=== PATIENT | female | born 1975 | race Caucasian/White ===

== ENCOUNTER 2016-06-28 18:58 | Emergency (ER) | payer MEDICARE ==
[~2016-06-28] VITALS: Ht 154.9 cm; Wt 173.7 kg
[~2016-06-28 18:58] MED LIST: ATEN-41 PO; HYDR25TA4 PO; LOSA100T11 PO
[2016-06-28 19:12] VITALS: BP 153/104; PULSE 81; RESP 16; O2SAT 98
--- NOTE | 2016-06-28 19:16 | NUR ---
Placed in room 4 . Placed on vehicle monitor technician, blood pressure machine and pulse oximeter. To gown for exam. Side rails up.
--- NOTE | 2016-06-28 19:25 | NUR ---
Pt presents to ED with c/o pulling sternal pressure 5/10, non-radiating, and difficulty breathing 2 hours ago. Pt also c/o swelling in the knee and hand. Skin intact. A&Ox4, denies N/V/D. Non-diaphoretic. Will contineu to monitor
--- NOTE | 2016-06-28 19:40 | NUR ---
at bedside examining pt
[2016-06-28 20:21] LABS: BILIRUBIN,URINE NEGATIVE (NEGATIVE); BLOOD, URINE NEGATIVE (NEGATIVE); CLARITY/URINE CLEAR (CLEAR); COLOR,URINE YELLOW (YELLOW); GLUCOSE,URINE NEGATIVE (NEGATIVE); KETONES,URINE NEGATIVE (NEGATIVE); LEUKOCYTE ESTERASE ,URINE NEGATIVE (NEGATIVE); NITRITE, URINE NEGATIVE (NEGATIVE); PROTEIN URINE NEGATIVE (NEGATIVE); UROBILINOGEN,URINE 0.2 (0.2-1.0)
--- NOTE | 2016-06-28 20:40 | NUR ---
pt in bed appeared resting comfortably. VSS
[2016-06-28 20:50] LABS: BASOPHILS % (AUTO) 0.3 % (0.0-2.0); EOSINOPHILS # (AUTO) 0.4 K/uL (0.0-0.4); EOSINOPHILS % (AUTO) 4.4 % (0.0-4.0); HEMATOCRIT 38.3 % (36-48); HEMOGLOBIN 12.9 g/dL (12.0-16.0); LYMPHOCYTES % (AUTO) 24.4 % (20.5-51.5); MEAN CORPUSCULAR HEMOGLOBIN 29 pg (27-31); MEAN CORPUSCULAR HGB CONC 34 % (32-36); MEAN CORPUSCULAR VOLUME 86 fL (79.0-98.0); MONOCYTES # (AUTO) 0.5 K/uL (0.0-1.0); MONOCYTES % (AUTO) 6.4 % (1.7-9.3); NEUTROPHILS # (AUTO) 5.3 K/uL (1.8-7.7); NEUTROPHILS % (AUTO) 64.5 % (40.0-70.0); PLATELET COUNT (AUTO) 166 K/uL (130-430); RED BLOOD CELL COUNT(AUTO) 4.48 MIL/uL (4.2-6.2); WHITE BLOOD COUNT (AUTO) 8.2 K/uL (4.8-10.8)
[2016-06-28] MEDS ORDERED: OXYCODONE/ACETAMINOPHEN 5-325 TABLET PO ONE (21:00)
[2016-06-28 21:02] LABS: CALCIUM 8.7 mg/dL (8.4-11.0); CREATININE 0.72 mg/dL (0.55-1.30); POTASSIUM 3.5 mmol/L (3.5-5.1)
[2016-06-28 21:06] LABS: ALBUMIN 3.2 g/dL (3.4-4.8); TOTAL BILIRUBIN 0.3 mg/dL (0.0-1.0); TOTAL PROTEIN, SERUM 6.9 g/dL (6.4-8.3)
[2016-06-28] MEDS ORDERED: KETOROLAC TROMETHAMINE 30 MG VIAL IM ONE (21:30)
--- NOTE | 2016-06-28 21:40 | NUR ---
Pt in bed, denies distress. WIll continue to monitor
[2016-06-28] MEDS ORDERED: KETOROLAC TROMETHAMINE 30 MG VIAL IVP ONE (21:45)
[2016-06-28 22:50] VITALS: BP 140/78; PULSE 80; RESP 18; TEMP 98.3; O2SAT 98
--- NOTE | 2016-06-28 22:50 | NUR ---
Patient given written and verbal discharge instructions and verbalizes understanding. ER MD Escobar discussed with patient the results and treatment provided. Patient in stable condition. ID arm band removed. IV catheter removed intact and dressing applied, no active bleeding. Rx of lasix given. Patient educated on pain management and to follow up with PMD. Pain Scale 0/10 Opportunity for questions provided and answered.
== END 2016-06-28 22:50 | disposition home or self-care (01) ==
LOC: SED 18:58
DX: R60.9 Edema, unspecified (principal); E66.9 Obesity, unspecified; I10 Essential (primary) hypertension; R06.00 Dyspnea, unspecified; Z68.45 Body mass index [BMI] 70 or greater, adult
CPT/HCPCS: 36415; 71010; 80053; 81003; 81025; 83880; 84484; 85025; 85379; 93005; 96374; 99285; J1885

== ENCOUNTER 2016-10-20 17:49 | Emergency (ER) | payer MEDICARE ==
[~2016-10-20] VITALS: Ht 157.5 cm; Wt 180.5 kg
[2016-10-20 17:50] VITALS: BP_SYST 152
[2016-10-20] MEDS ORDERED: ACETAMINOPHEN 500 MG TABLET PO ONE (18:15)
[2016-10-20 19:15] VITALS: BP_SYST 140
== END 2016-10-20 19:15 | disposition home or self-care (01) ==
LOC: SED 17:49
DX: M79.662 Pain in left lower leg (principal); I10 Essential (primary) hypertension; E66.01 Morbid (severe) obesity due to excess calories; Z68.45 Body mass index [BMI] 70 or greater, adult
CPT/HCPCS: 36415; 85379; 93971; 99285

== ENCOUNTER 2017-01-21 17:46 | Emergency (ER) | payer MEDICARE ==
[~2017-01-21] VITALS: Ht 157.5 cm; Wt 174.2 kg
[2017-01-21 17:55] VITALS: BP 156/90; PULSE 68; RESP 19; TEMP 96.8; O2SAT 99
[2017-01-21] MEDS ORDERED: KETOROLAC TROMETHAMINE 60 MG/2 ML VIAL IM ONE (19:00)
== END 2017-01-21 18:06 | disposition left against medical advice (07) ==
LOC: SED 17:46
DX: M25.561 Pain in right knee (principal); J45.909 Unspecified asthma, uncomplicated; I10 Essential (primary) hypertension; E66.01 Morbid (severe) obesity due to excess calories; Z68.45 Body mass index [BMI] 70 or greater, adult; Z53.20 Procedure and treatment not carried out because of patient's decision for unspecified reasons
CPT/HCPCS: 99281

== ENCOUNTER 2017-11-22 23:14 | Emergency (ER) | payer MEDICARE ==
[~2017-11-22] VITALS: Ht 152.4 cm; Wt 179.2 kg
[~2017-11-22 23:14] MED LIST changes: -LOSA100T11 PO; +LOSA100T3 PO
[2017-11-22 23:24] VITALS: BP_SYST 160
[2017-11-22] MEDS ORDERED: ASPIRIN 325 MG TABLET PO ONE (23:45)
[2017-11-22 23:53] LABS: BASOPHILS % (AUTO) 0.7 % (0.0-2.0); EOSINOPHILS # (AUTO) 0.1 K/uL (0.0-0.4); EOSINOPHILS % (AUTO) 1.6 % (0.0-4.0); HEMATOCRIT 42.3 % (36-48); HEMOGLOBIN 14.2 g/dL (12.0-16.0); LYMPHOCYTES # (AUTO) 1.7 K/uL (1.0-5.5); LYMPHOCYTES % (AUTO) 25.1 % (20.5-51.5); MEAN CORPUSCULAR HEMOGLOBIN 30 pg (27-31); MEAN CORPUSCULAR HGB CONC 34 % (32-36); MEAN CORPUSCULAR VOLUME 88 fL (79.0-98.0); MONOCYTES # (AUTO) 0.4 K/uL (0.0-1.0); MONOCYTES % (AUTO) 5.8 % (1.7-9.3); NEUTROPHILS # (AUTO) 4.7 K/uL (1.8-7.7); NEUTROPHILS % (AUTO) 66.8 % (40.0-70.0); PLATELET COUNT (AUTO) 214 K/uL (130-430); RED CELL DISTRIBUTION WIDTH 14.9 % (9.0-15.0); WHITE BLOOD COUNT (AUTO) 6.9 K/uL (4.8-10.8)
[2017-11-23 00:14] LABS: CALCIUM 8.8 mg/dL (8.4-11.0); CREATININE 1.14 mg/dL (0.55-1.30)
[2017-11-23 00:15] LABS: ALBUMIN 3.4 g/dL (3.4-4.8); TOTAL BILIRUBIN 0.3 mg/dL (0.0-1.0)
[2017-11-23 00:40] VITALS: BP_SYST 143
== END 2017-11-23 00:40 | disposition home or self-care (01) ==
LOC: SED 23:14
DX: F41.9 Anxiety disorder, unspecified (principal); E66.01 Morbid (severe) obesity due to excess calories; J45.909 Unspecified asthma, uncomplicated; I10 Essential (primary) hypertension
CPT/HCPCS: 36415; 71045; 80053; 84484; 85025; 85379; 93005; 99285

== ENCOUNTER 2017-12-27 15:57 | Inpatient (IN) | payer MEDICARE ==
[~2017-12-27] VITALS: Ht 154.9 cm; Wt 183.7 kg
[2017-12-27 16:38] VITALS: BP_SYST 158
[2017-12-27] MEDS ORDERED: NACL 0.9% 1,000 ML IV ONE (18:56)
[2017-12-27] MEDS ORDERED: D5/0.45 NS 1,000 ML IV ONE (19:15)
[2017-12-27] MEDS ORDERED: ONDANSETRON HCL 4 MG/2 ML VIAL IVP ONE (19:15)
[2017-12-27] MEDS ORDERED: MORPHINE 4 MG/ML INJ. SYRINGE IVP ONE (19:15)
[2017-12-27 19:17] LABS: BASOPHILS % (AUTO) 0.4 % (0.0-2.0); EOSINOPHILS # (AUTO) 0.2 K/uL (0.0-0.4); EOSINOPHILS % (AUTO) 2.2 % (0.0-4.0); HEMATOCRIT 38.9 % (36-48); HEMOGLOBIN 13.3 g/dL (12.0-16.0); LYMPHOCYTES # (AUTO) 1.6 K/uL (1.0-5.5); LYMPHOCYTES % (AUTO) 17.3 % (20.5-51.5); MEAN CORPUSCULAR HEMOGLOBIN 30 pg (27-31); MEAN CORPUSCULAR HGB CONC 34 % (32-36); MEAN CORPUSCULAR VOLUME 87 fL (79.0-98.0); MONOCYTES # (AUTO) 0.5 K/uL (0.0-1.0); MONOCYTES % (AUTO) 5.6 % (1.7-9.3); NEUTROPHILS # (AUTO) 6.9 K/uL (1.8-7.7); NEUTROPHILS % (AUTO) 74.5 % (40.0-70.0); PLATELET COUNT (AUTO) 197 K/uL (130-430); RED CELL DISTRIBUTION WIDTH 14.1 % (9.0-15.0); WHITE BLOOD COUNT (AUTO) 9.2 K/uL (4.8-10.8)
[2017-12-27 19:25] LABS: CALCIUM 8.5 mg/dL (8.4-11.0); CREATININE 0.69 mg/dL (0.55-1.30)
[2017-12-27 19:26] LABS: PROTHROMBIN TIME 10.4 SECS (9.5-12.5)
[2017-12-27 19:27] LABS: POTASSIUM 2.9 mmol/L (3.5-5.1)
[2017-12-27 19:29] LABS: TOTAL BILIRUBIN 0.3 mg/dL (0.0-1.0)
[2017-12-27] MEDS ORDERED: KCL 40 mEq in 100 mL (PREMIX) 100 ML IV ONE (19:30)
[2017-12-27] MEDS ORDERED: POTASSIUM CHLORIDE 20 MEQ TAB.PRT.SR PO ONE (19:30)
[2017-12-27] MEDS ORDERED: KCL 20 mEq in 100 mL (PREMIX) 100 ML IV ONE (19:43)
[2017-12-27 20:28] VITALS: BP_SYST 136
[2017-12-27 20:41] LABS: BILIRUBIN,URINE NEGATIVE (NEGATIVE); BLOOD, URINE NEGATIVE (NEGATIVE); CLARITY/URINE CLEAR (CLEAR); COLOR,URINE YELLOW (YELLOW); GLUCOSE,URINE NEGATIVE (NEGATIVE); KETONES,URINE NEGATIVE (NEGATIVE); LEUKOCYTE ESTERASE ,URINE NEGATIVE (NEGATIVE); NITRITE, URINE NEGATIVE (NEGATIVE); PH,URINE 6.5 (5.0-8.0); PROTEIN URINE NEGATIVE (NEGATIVE); UROBILINOGEN,URINE 0.2 (0.2-1.0)
[2017-12-27 20:42] LABS: HCG,QUAL RESULT NEGATIVE (NEGATIVE)
[2017-12-27] MEDS ORDERED: MORPHINE 2 MG/ML INJ. SYRINGE IVP PRN (20:45)
[2017-12-27] MEDS ORDERED: LORazepam 2 MG/ML VIAL IVP PRN (20:45)
[2017-12-27] MEDS ORDERED: ONDANSETRON HCL 4 MG/2 ML VIAL IVP PRN ×3 (20:45→22:15)
[2017-12-27] MEDS ORDERED: MORPHINE 4 MG/ML INJ. SYRINGE IVP PRN (20:45)
[2017-12-27] MEDS ORDERED: fentaNYL CITRATE/PF 100 MCG/2 ML AMP IVP ONE (21:10)
[2017-12-27] MEDS ORDERED: MIDAZOLAM HCL 5 MG/5 ML VIAL IVP ONE (21:10)
[2017-12-27] MEDS ORDERED: AMPICILLIN SODIUM/SULBACTAM NA 3 GM VIAL IV ONE (21:10)
[2017-12-27] MEDS ORDERED: fentaNYL CITRATE/PF 100 MCG/2 ML AMP IVP PRN ×2 (22:00)
[2017-12-27] MEDS ORDERED: NACL 0.9% 1,000 ML IV SCH (22:02)
[2017-12-27] MEDS ORDERED: ACETAMINOPHEN 325 MG TABLET PO PRN (22:15)
[2017-12-27] MEDS ORDERED: CEFAZOLIN 2 GM IVPB PREMIX 50 ML IV SCH (22:15)
[2017-12-27] MEDS ORDERED: HYDROmorphone 1 MG INJ. 1 MG/ML AMPUL IVP PRN (22:15)
[2017-12-27] MEDS ORDERED: metroNIDAZOLE 500 mg/NS 100 ML IV SCH (22:15)
[2017-12-27 22:26] VITALS: BP_SYST 136
[2017-12-27] MEDS ORDERED: CEFAZOLIN 2 GM IVPB PREMIX 100 ML IV ONE (23:35)
[2017-12-27] MEDS ORDERED: metroNIDAZOLE 500 mg/NS 200 ML IV ONE (23:35)
[2017-12-28 02:48] VITALS: BP_SYST 112
[2017-12-28 05:58] LABS: BASOPHILS % (AUTO) 0.2 % (0.0-2.0); EOSINOPHILS # (AUTO) 0.2 K/uL (0.0-0.4); HEMATOCRIT 35.8 % (36-48); HEMOGLOBIN 12.1 g/dL (12.0-16.0); LYMPHOCYTES # (AUTO) 1.7 K/uL (1.0-5.5); LYMPHOCYTES % (AUTO) 20.8 % (20.5-51.5); MEAN CORPUSCULAR HEMOGLOBIN 30 pg (27-31); MEAN CORPUSCULAR HGB CONC 34 % (32-36); MEAN CORPUSCULAR VOLUME 89 fL (79.0-98.0); MONOCYTES # (AUTO) 0.5 K/uL (0.0-1.0); MONOCYTES % (AUTO) 5.7 % (1.7-9.3); NEUTROPHILS # (AUTO) 5.7 K/uL (1.8-7.7); NEUTROPHILS % (AUTO) 71.3 % (40.0-70.0); PLATELET COUNT (AUTO) 190 K/uL (130-430); RED BLOOD CELL COUNT(AUTO) 4.03 MIL/uL (4.2-6.2); RED CELL DISTRIBUTION WIDTH 14.2 % (9.0-15.0); WHITE BLOOD COUNT (AUTO) 8.1 K/uL (4.8-10.8)
[2017-12-28 06:22] LABS: ALBUMIN 2.7 g/dL (3.4-4.8); CALCIUM 8.2 mg/dL (8.4-11.0); CREATININE 0.72 mg/dL (0.55-1.30); TOTAL BILIRUBIN 0.4 mg/dL (0.0-1.0)
[2017-12-28 06:47] LABS: POTASSIUM 2.9 mmol/L (3.5-5.1)
[2017-12-28 07:54] VITALS: BP_SYST 121
[2017-12-28] MEDS ORDERED: POTASSIUM CHLORIDE 40 MEQ in NS 250 ML IV ONE (08:00)
[2017-12-28] MEDS ORDERED: metroNIDAZOLE 500 mg/NS 100 ML IV SCH (08:00)
[2017-12-28] MEDS ORDERED: CEFAZOLIN 2 GM IVPB PREMIX 50 ML IV SCH (08:00)
[2017-12-28] MEDS: KCL 20 mEq in NS 1000 mL 1,000 ML IV SCH (08:24)
[2017-12-28 12:02] VITALS: BP_SYST 137
[2017-12-28] MEDS ORDERED: OXYCODONE/ACETAMINOPHEN 5-325 TABLET PO PRN (14:00)
[2017-12-28] MEDS ORDERED: ATENOLOL 25 MG TABLET(TENORMIN) PO ONE (14:00)
[2017-12-28] MEDS ORDERED: ACETAMINOPHEN 325 MG TABLET PO PRN (14:00)
[2017-12-28] MEDS ORDERED: LOSARTAN POTASSIUM 50 MG TABLET (COZAAR) PO ONE (14:00)
[2017-12-28] MEDS ORDERED: HYDROCHLOROTHIAZIDE 25 MG TABLET (HCTZ) PO ONE (14:00)
[2017-12-28 16:13] VITALS: BP_SYST 109
[2017-12-28 19:32] VITALS: BP_SYST 119
[2017-12-28] MEDS: DOCUSATE SODIUM 100 MG CAPSULE PO SCH (21:00)
[2017-12-28 21:30] VITALS: BP_SYST 126
[2017-12-28] MEDS: HYDROcodone/ACETAMIN 5-325 MG TAB (NORCO/ VICODIN) PO PRN (23:35)
[2017-12-29 00:34] VITALS: BP_SYST 119
[2017-12-29] MEDS: KCL 20 mEq in NS 1000 mL 1,000 ML IV SCH ×3 (03:09→15:16)
[2017-12-29 06:17] LABS: BASOPHILS % (AUTO) 0.6 % (0.0-2.0); EOSINOPHILS # (AUTO) 0.1 K/uL (0.0-0.4); EOSINOPHILS % (AUTO) 1.9 % (0.0-4.0); HEMOGLOBIN 11.8 g/dL (12.0-16.0); LYMPHOCYTES # (AUTO) 1.9 K/uL (1.0-5.5); LYMPHOCYTES % (AUTO) 28.1 % (20.5-51.5); MEAN CORPUSCULAR HEMOGLOBIN 31 pg (27-31); MEAN CORPUSCULAR HGB CONC 35 % (32-36); MEAN CORPUSCULAR VOLUME 88 fL (79.0-98.0); MONOCYTES # (AUTO) 0.5 K/uL (0.0-1.0); MONOCYTES % (AUTO) 6.8 % (1.7-9.3); NEUTROPHILS # (AUTO) 4.2 K/uL (1.8-7.7); NEUTROPHILS % (AUTO) 62.6 % (40.0-70.0); PLATELET COUNT (AUTO) 166 K/uL (130-430); RED BLOOD CELL COUNT(AUTO) 3.85 MIL/uL (4.2-6.2); RED CELL DISTRIBUTION WIDTH 14.2 % (9.0-15.0); WHITE BLOOD COUNT (AUTO) 6.7 K/uL (4.8-10.8)
[2017-12-29 06:33] LABS: C-REACTIVE PROTEIN QUANT 3.5 mg/dL (0-0.5); CALCIUM 8.2 mg/dL (8.4-11.0); CREATININE 0.64 mg/dL (0.55-1.30); POTASSIUM 3.3 mmol/L (3.5-5.1)
[2017-12-29 08:30] VITALS: BP_SYST 107
[2017-12-29 08:32] LABS: ERYTHROCYTE SEDIMENTATION RATE 39 MM/HR (0-20)
[2017-12-29] MEDS: HYDROCHLOROTHIAZIDE 25 MG TABLET (HCTZ) PO SCH (09:53)
[2017-12-29] MEDS: ATENOLOL 25 MG TABLET(TENORMIN) PO SCH (09:54)
[2017-12-29] MEDS: HYDROcodone/ACETAMIN 5-325 MG TAB (NORCO/ VICODIN) PO PRN ×2 (09:55→15:21)
[2017-12-29] MEDS: LOSARTAN POTASSIUM 50 MG TABLET (COZAAR) PO SCH (09:55)
[2017-12-29 12:56] VITALS: BP_SYST 133
[2017-12-29 16:57] VITALS: BP_SYST 136
[2017-12-29 20:00] VITALS: BP_SYST 123
[2017-12-29] MEDS: DOCUSATE SODIUM 100 MG CAPSULE PO SCH (21:00)
[2017-12-30] MEDS: HYDROcodone/ACETAMIN 5-325 MG TAB (NORCO/ VICODIN) PO PRN ×3 (00:15→14:42)
[2017-12-30 00:38] VITALS: BP_SYST 137
[2017-12-30] MEDS: KCL 20 mEq in NS 1000 mL 1,000 ML IV SCH ×2 (03:12→09:38)
[2017-12-30 06:31] LABS: C-REACTIVE PROTEIN QUANT 2.1 mg/dL (0-0.5); CALCIUM 8.3 mg/dL (8.4-11.0); CREATININE 0.6 mg/dL (0.55-1.30); POTASSIUM 3.3 mmol/L (3.5-5.1)
[2017-12-30 07:34] LABS: BASOPHILS % (AUTO) 0.5 % (0.0-2.0); EOSINOPHILS # (AUTO) 0.1 K/uL (0.0-0.4); EOSINOPHILS % (AUTO) 2.5 % (0.0-4.0); HEMATOCRIT 33.3 % (36-48); HEMOGLOBIN 10.9 g/dL (12.0-16.0); LYMPHOCYTES # (AUTO) 1.8 K/uL (1.0-5.5); LYMPHOCYTES % (AUTO) 31.2 % (20.5-51.5); MEAN CORPUSCULAR HEMOGLOBIN 29 pg (27-31); MEAN CORPUSCULAR HGB CONC 33 % (32-36); MEAN CORPUSCULAR VOLUME 88 fL (79.0-98.0); MONOCYTES # (AUTO) 0.3 K/uL (0.0-1.0); MONOCYTES % (AUTO) 5.4 % (1.7-9.3); NEUTROPHILS # (AUTO) 3.6 K/uL (1.8-7.7); NEUTROPHILS % (AUTO) 60.4 % (40.0-70.0); PLATELET COUNT (AUTO) 171 K/uL (130-430); RED BLOOD CELL COUNT(AUTO) 3.78 MIL/uL (4.2-6.2); RED CELL DISTRIBUTION WIDTH 13.9 % (9.0-15.0); WHITE BLOOD COUNT (AUTO) 5.8 K/uL (4.8-10.8)
[2017-12-30 08:40] VITALS: BP_SYST 142
[2017-12-30] MEDS: HYDROCHLOROTHIAZIDE 25 MG TABLET (HCTZ) PO SCH (09:34)
[2017-12-30] MEDS: LOSARTAN POTASSIUM 50 MG TABLET (COZAAR) PO SCH (09:34)
[2017-12-30] MEDS: ATENOLOL 25 MG TABLET(TENORMIN) PO SCH (09:35)
[2017-12-30 09:47] LABS: ERYTHROCYTE SEDIMENTATION RATE 34 MM/HR (0-20)
[2017-12-30 12:23] VITALS: BP_SYST 124
[2017-12-30] MEDS ORDERED: POTASSIUM CHLORIDE 20 MEQ/PKT PACKET PO ONE (13:30)
[2017-12-30] MEDS ORDERED: DOCU-144 PO (13:42)
[2017-12-30] MEDS ORDERED: HYDR-4272 PO (13:42)
[2017-12-30] MEDS ORDERED: CEPH-568 PO (13:42)
[2017-12-30 15:40] VITALS: BP_SYST 124
[2017-12-30 16:52] VITALS: BP_SYST 154
== END 2017-12-30 18:55 | disposition home health service (06) | DRG 223 ==
LOC: SED 15:57 → SMU 19:10
PROVIDERS: ADMIT Preventive Medicine Preventive Medicine/Occupational Environmental Medicine; ATTEND Preventive Medicine Preventive Medicine/Occupational Environmental Medicine
PROC: 0D9P0ZZ Drainage of Rectum, Open Approach (ICD-10-PCS; principal; 2017-12-27 21:30)
DX: K61.1 Rectal abscess (principal); E11.65 Type 2 diabetes mellitus with hyperglycemia; E66.01 Morbid (severe) obesity due to excess calories; E03.9 Hypothyroidism, unspecified; E87.6 Hypokalemia; I10 Essential (primary) hypertension; R74.0 Nonspecific elevation of levels of transaminase and lactic acid dehydrogenase [LDH]; J45.909 Unspecified asthma, uncomplicated; B96.1 Klebsiella pneumoniae [K. pneumoniae] as the cause of diseases classified elsewhere; D64.9 Anemia, unspecified; E83.52 Hypercalcemia; Z98.891 History of uterine scar from previous surgery; Z68.45 Body mass index [BMI] 70 or greater, adult; Z79.899 Other long term (current) drug therapy
CPT/HCPCS: 36415; 80048; 80053; 81003; 84703; 85025; 85610-TC; 85651-TC; 85730-TC; 86140; 87040-TC; 87070; 87070-TC; 87075-TC; 87081; 87186-TC; 93005; 94010; 96374; 96375; 99285; J0295; J0690; J1170; J2250; J2270; J2405; J3010; J3480; J3490; J7030; J7050

== ENCOUNTER 2018-07-07 18:05 | Emergency (ER) | payer BC, MEDICARE ==
[~2018-07-07] VITALS: Ht 157.5 cm; Wt 183.7 kg
[2018-07-07 18:05] VITALS: BP_SYST 158
[~2018-07-07 18:05] MED LIST changes: +CEPH-568 PO; +DOCU-144 PO; +HYDR-4272 PO
--- NOTE | 2018-07-07 18:05 | NUR ---
Patient triaged and placed in waiting room. VSS and patient appears in no acute distress at this time. Accompanied by FAMILY, awaiting available bed, and MD notified of need for MSE.
--- NOTE | 2018-07-07 18:49 | NUR ---
BROUGHT BACK TO BED #6, REPORT GIVEN TO INSTRUCTIONAL SERVICES LIBRARIAN NURSES
--- NOTE | 2018-07-07 19:21 | NUR ---
Pt came into ED C/O chest tightness and SOB (O2 sat 97% on RA) since 1 in the afternoon. Pt states that she is boarderline DM2 and her K always runs low. No other complaints and injuries noted or observed. Resting on gurney with rails up
[2018-07-07] MEDS ORDERED: ASPIRIN 81 MG TAB.CHEW PO ONE (20:45)
[2018-07-07 21:19] LABS: WHITE BLOOD COUNT (AUTO) 7.1 K/uL (4.8-10.8)
[2018-07-07 21:23] LABS: HEMATOCRIT 42.5 % (36-48); HEMOGLOBIN 14.3 g/dL (12.0-16.0); MEAN CORPUSCULAR HEMOGLOBIN 29 pg (27-31); MEAN CORPUSCULAR VOLUME 88 fL (79.0-98.0); RED BLOOD CELL COUNT(AUTO) 4.86 MIL/uL (4.2-6.2)
[2018-07-07 21:24] LABS: MEAN CORPUSCULAR HGB CONC 34 % (32-36); PLATELET COUNT (AUTO) 189 K/uL (130-430); RED CELL DISTRIBUTION WIDTH 14.8 % (9.0-15.0)
[2018-07-07 21:25] LABS: BASOPHILS # (AUTO) 0.1 K/uL (0.0-0.2); BASOPHILS % (AUTO) 0.7 % (0.0-2.0); EOSINOPHILS # (AUTO) 0.2 K/uL (0.0-0.4); EOSINOPHILS % (AUTO) 2.2 % (0.0-4.0); LYMPHOCYTES # (AUTO) 1.9 K/uL (1.0-5.5); LYMPHOCYTES % (AUTO) 27.4 % (20.5-51.5); MONOCYTES # (AUTO) 0.4 K/uL (0.0-1.0); MONOCYTES % (AUTO) 6.2 % (1.7-9.3); NEUTROPHILS # (AUTO) 4.5 K/uL (1.8-7.7); NEUTROPHILS % (AUTO) 63.5 % (40.0-70.0)
[2018-07-07 21:37] LABS: CALCIUM 9.2 mg/dL (8.4-11.0); CREATININE 0.61 mg/dL (0.55-1.30); POTASSIUM 3.7 mmol/L (3.5-5.1)
[2018-07-07 21:42] LABS: ALBUMIN 3.4 g/dL (3.4-4.8); TOTAL BILIRUBIN 0.3 mg/dL (0.0-1.0)
[2018-07-07 21:45] LABS: BILIRUBIN,URINE NEGATIVE (NEGATIVE); BLOOD, URINE NEGATIVE (NEGATIVE); CLARITY/URINE CLEAR (CLEAR); COLOR,URINE YELLOW (YELLOW); GLUCOSE,URINE NEGATIVE (NEGATIVE); KETONES,URINE NEGATIVE (NEGATIVE); LEUKOCYTE ESTERASE ,URINE NEGATIVE (NEGATIVE); NITRITE, URINE NEGATIVE (NEGATIVE); PROTEIN URINE NEGATIVE (NEGATIVE); UROBILINOGEN,URINE 0.2 (0.2-1.0)
[2018-07-07 22:08] LABS: CKMB RELATIVE INDEX 1.4 (0.0-2.9); CREATINE KINASE MB 2.7 ng/mL (0-3.6)
[2018-07-07 22:27] LABS: BARBITURATE, URINE NEGATIVE (NEG <=200); BENZODIAZEPINE, URINE NEGATIVE (NEG <=150); CANNABINOID, URINE NEGATIVE (NEG <=50); COCAINE, URINE NEGATIVE (NEG <=150); METHAMPHETAMINES SCREEN,URINE NEGATIVE (NEG <=500); OPIATE, URINE NEGATIVE (NEG <=100); PHENCYCLIDINE SCREEN,URINE NEGATIVE (NEG <=25); UR TRICYCLIC ANTIDEPRESSANTS NEGATIVE (NEG <=300); URINE AMPHETAMINE NEGATIVE (NEG <=500); URINE METHADONE NEGATIVE (NEG <=200); URINE OXYCODONE SCREEN NEGATIVE (NEG <=100); URINE PROPOXYPHENE SCREEN NEGATIVE (NEG <=300)
[2018-07-07] MEDS ORDERED: LORazepam 1 MG TABLET PO ONE (23:30)
[2018-07-08 00:30] VITALS: BP_SYST 148
--- NOTE | 2018-07-08 00:30 | NUR ---
Patient given written and verbal discharge instructions and verbalizes understanding. ER MD discussed with patient the results and treatment provided. Patient in stable condition. ID arm band removed. Rx of Ativan given. Patient educated on pain management and to follow up with PMD. Pain Scale 0/10. Opportunity for questions provided and answered. Medication side effect fact sheet provided.
== END 2018-07-08 00:30 | disposition home or self-care (01) ==
LOC: SED 18:05
DX: F41.9 Anxiety disorder, unspecified (principal); J45.909 Unspecified asthma, uncomplicated; I10 Essential (primary) hypertension; Z79.899 Other long term (current) drug therapy
CPT/HCPCS: 36415; 71045; 80053; 80307; 81003; 82550-TC; 82553-TC; 82962; 83880; 84484; 85025; 85610-TC; 93005; 99284

== ENCOUNTER 2018-07-26 01:57 | Emergency (ER) | payer BC ==
[~2018-07-26] VITALS: Ht 154.9 cm; Wt 183.3 kg
[2018-07-26 01:57] VITALS: BP_SYST 210
[2018-07-26] MEDS ORDERED: LORazepam 2 MG/ML VIAL (FOR ER USE) IVP ONE (02:30)
[2018-07-26] MEDS ORDERED: NS 1000 ML IV.SOLN IV ONE (02:30)
[2018-07-26] MEDS ORDERED: hydrALAZINE HCL 20 MG/ML VIAL IVP ONE (02:30)
[2018-07-26] MEDS ORDERED: PIPERACILLIN/TAZO 3.375 GM in NS 50 ML IV ONE (02:30)
[2018-07-26] MEDS ORDERED: PIPERACILLIN/TAZOBACTAM 3.375 GM/VIAL (ZOSYN) IV ONE (02:46)
[2018-07-26 02:50] LABS: HEMATOCRIT 43.3 % (36-48); HEMOGLOBIN 14.4 g/dL (12.0-16.0); MEAN CORPUSCULAR HEMOGLOBIN 30 pg (27-31); MEAN CORPUSCULAR HGB CONC 33 % (32-36); MEAN CORPUSCULAR VOLUME 89 fL (79.0-98.0); RED BLOOD CELL COUNT(AUTO) 4.87 MIL/uL (4.2-6.2); WHITE BLOOD COUNT (AUTO) 7.2 K/uL (4.8-10.8)
[2018-07-26 02:51] LABS: BASOPHILS % (AUTO) 0.5 % (0.0-2.0); EOSINOPHILS # (AUTO) 0.2 K/uL (0.0-0.4); EOSINOPHILS % (AUTO) 2.3 % (0.0-4.0); LYMPHOCYTES # (AUTO) 2.1 K/uL (1.0-5.5); LYMPHOCYTES % (AUTO) 29.5 % (20.5-51.5); MONOCYTES # (AUTO) 0.3 K/uL (0.0-1.0); MONOCYTES % (AUTO) 4.6 % (1.7-9.3); NEUTROPHILS # (AUTO) 4.6 K/uL (1.8-7.7); NEUTROPHILS % (AUTO) 63.1 % (40.0-70.0); PLATELET COUNT (AUTO) 183 K/uL (130-430); RED CELL DISTRIBUTION WIDTH 14.6 % (9.0-15.0)
[2018-07-26 02:58] LABS: CREATININE 1.01 mg/dL (0.55-1.30); POTASSIUM 3.4 mmol/L (3.5-5.1)
[2018-07-26 03:04] LABS: ALBUMIN 3.2 g/dL (3.4-4.8); TOTAL BILIRUBIN 0.3 mg/dL (0.0-1.0)
[2018-07-26 03:50] LABS: BILIRUBIN,URINE NEGATIVE (NEGATIVE); BLOOD, URINE 1+ (NEGATIVE); CLARITY/URINE CLEAR (CLEAR); COLOR,URINE YELLOW (YELLOW); GLUCOSE,URINE NEGATIVE (NEGATIVE); KETONES,URINE NEGATIVE (NEGATIVE); LEUKOCYTE ESTERASE ,URINE NEGATIVE (NEGATIVE); NITRITE, URINE NEGATIVE (NEGATIVE); PH,URINE 6.5 (5.0-8.0); PROTEIN URINE NEGATIVE (NEGATIVE); UROBILINOGEN,URINE 0.2 (0.2-1.0)
[2018-07-26 04:04] LABS: BACTERIA,URINE FEW /HPF (None Seen)
[2018-07-26] MEDS ORDERED: KETOROLAC TROMETHAMINE 30 MG VIAL IVP ONE (04:15)
[2018-07-26 05:16] VITALS: BP_SYST 166
== END 2018-07-26 05:16 | disposition home or self-care (01) ==
LOC: SED 01:57
DX: L02.211 Cutaneous abscess of abdominal wall (principal); L03.311 Cellulitis of abdominal wall; J45.909 Unspecified asthma, uncomplicated; I10 Essential (primary) hypertension; E66.01 Morbid (severe) obesity due to excess calories; Z68.45 Body mass index [BMI] 70 or greater, adult; Z79.899 Other long term (current) drug therapy
CPT/HCPCS: 36415; 80053; 81000; 83605; 85025; 87040; 87070; 87086; 87186; 96365; 96375; 99283; J1885; J2060; J2543; J7030

== ENCOUNTER 2018-10-02 19:42 | Inpatient (IN) | payer BC ==
[~2018-10-02] VITALS: Ht 154.9 cm; Wt 186.9 kg
--- NOTE | 2018-10-02 19:46 | NUR ---
Placed in room 3. Placed on quality systems technician, blood pressure machine and pulse oximeter. To gown for exam. Side rails up.
--- NOTE | 2018-10-02 19:50 | NUR ---
Pt C/O shortness of breath and chest tightness since has been seen at the urgent care three times in since the onset of symptoms and has been discharged with QVAR, prednison, and antibiotics. Pt is also C/O "racing heart" since today has hx of anxiety. Pt is tachycardia, denies any other symptoms at this time. Will continue to monitor.
[2018-10-02 19:52] VITALS: BP_SYST 156
--- NOTE | 2018-10-02 20:00 | NUR ---
# 20 gauge angiocath placed to RT AC. Use of asceptic technique. Opsite placed over site. Blood return noted. Blood for lab drawn from site. Flushed with 10 cc of normal saline. No evidence of infiltration noted. Patient tolerated well.
--- NOTE | 2018-10-02 20:16 | NUR ---
ER Dr. Haile at bedside examining patient.
--- NOTE | 2018-10-02 20:26 | NUR ---
Radiology at bedside for xray
[2018-10-02 20:27] LABS: BASOPHILS # (AUTO) 0.1 K/uL (0.0-0.2); BASOPHILS % (AUTO) 0.7 % (0.0-2.0); EOSINOPHILS % (AUTO) 0.4 % (0.0-4.0); HEMATOCRIT 44.4 % (36-48); HEMOGLOBIN 14.6 g/dL (12.0-16.0); LYMPHOCYTES # (AUTO) 1.9 K/uL (1.0-5.5); LYMPHOCYTES % (AUTO) 23.9 % (20.5-51.5); MEAN CORPUSCULAR HEMOGLOBIN 29 pg (27-31); MEAN CORPUSCULAR HGB CONC 33 % (32-36); MEAN CORPUSCULAR VOLUME 89 fL (79.0-98.0); MONOCYTES # (AUTO) 0.2 K/uL (0.0-1.0); MONOCYTES % (AUTO) 3.1 % (1.7-9.3); NEUTROPHILS # (AUTO) 5.8 K/uL (1.8-7.7); NEUTROPHILS % (AUTO) 71.9 % (40.0-70.0); PLATELET COUNT (AUTO) 186 K/uL (130-430); RED BLOOD CELL COUNT(AUTO) 4.97 MIL/uL (4.2-6.2); RED CELL DISTRIBUTION WIDTH 15.2 % (9.0-15.0)
[2018-10-02] MEDS ORDERED: LORazepam 2 MG/ML VIAL IVP ONE (20:30)
[2018-10-02 20:38] LABS: CALCIUM 9.7 mg/dL (8.4-11.0); CREATININE 0.86 mg/dL (0.55-1.30); POTASSIUM 3.4 mmol/L (3.5-5.1)
[2018-10-02 20:40] LABS: PROTHROMBIN TIME 10.2 SECS (9.5-12.5)
[2018-10-02 20:43] LABS: ALBUMIN 3.7 g/dL (3.4-4.8); TOTAL BILIRUBIN 0.4 mg/dL (0.0-1.0)
[2018-10-02] MEDS ORDERED: LORazepam 2 MG/ML VIAL (FOR ER USE) ONE (20:51)
--- NOTE | 2018-10-02 20:54 | NUR ---
Patient transported to radiology via gurney, accompanied by rad staff.
[2018-10-02] MEDS ORDERED: IOHEXOL 350 mgI/mL, 150 ML INFUS..BTL IV ONE (21:01)
--- NOTE | 2018-10-02 21:10 | NUR ---
Pt returned in stable condition
--- NOTE | 2018-10-02 21:30 | NUR ---
Pt reports she is full code
[2018-10-02 21:31] LABS: BILIRUBIN,URINE NEGATIVE (NEGATIVE); CLARITY/URINE CLEAR (CLEAR); COLOR,URINE YELLOW (YELLOW); GLUCOSE,URINE NEGATIVE (NEGATIVE); KETONES,URINE NEGATIVE (NEGATIVE); LEUKOCYTE ESTERASE ,URINE NEGATIVE (NEGATIVE); PROTEIN URINE NEGATIVE (NEGATIVE)
[2018-10-02 21:32] LABS: NITRITE, URINE NEGATIVE (NEGATIVE)
[2018-10-02] MEDS ORDERED: PRED1TAB PO (21:32)
[2018-10-02] MEDS ORDERED: BECL10.62 IH (21:32)
[2018-10-02 21:33] LABS: BLOOD, URINE TRACE (NEGATIVE)
--- NOTE | 2018-10-02 21:33 | NUR ---
Medication reconciliation completed with information provided by pt. Any prior medication reconciliation on file was reviewed and corrected.
[2018-10-02 21:40] LABS: BACTERIA,URINE FEW /HPF (None Seen); MUCUS,URINE None Seen /LPF (None Seen); RBC,URINE NONE SEEN /HPF (0-3); WBC,URINE 0-3 /HPF (0-3)
--- NOTE | 2018-10-02 22:12 | NUR ---
Pt is resting in bed, no acute distress noted at this time. Will continue to monitor.
[2018-10-02] MEDS ORDERED: ENOXAPARIN SODIUM 120 MG/0.8 ML SYRINGE SUBCUT ONE (23:00)
--- NOTE | 2018-10-02 23:10 | NUR ---
Pt is resting in bed, no acute distress noted at this time. Will continue to monitor
[2018-10-03] VITALS (7 sets, daily range): BP systolic 114–148
[2018-10-03] MEDS ORDERED: LevALBUTEROL HCL 1.25 MG/0.5 ML *CONC.* VIAL.NEB (XOPENEX CONC.) INH PRN (01:15)
--- NOTE | 2018-10-03 01:18 | NUR ---
Patient will be admitted to care of Dr. Hough. Admitted to Telemetry unit. Will go to room 100A. Belongings list completed. Summary report printed. Report will be given at bedside.
--- NOTE | 2018-10-03 01:45 | NUR ---
ADMIT NOTE Received pt from ER to the floor with a diagnosis of pulmonary embolism. Admission process initiated. patient oriented to pain management, safety and call light-teach back done.
--- NOTE | 2018-10-03 02:09 | NUR ---
CONSULT REASON FOR CONSULT: CHEST PAIN AND SHORTNESS OF BREATH PERSON I SPOKE WITH: ELISA CONSULTING PHYSICIAN: DR. POZO DATA MANAGEMENT PHONE NUMBER: [phone] ORDERING PHYSICIAN: DR. HOLGUIN
--- NOTE | 2018-10-03 02:13 | NUR ---
CONSULT REASON FOR CONSULT: CHEST PAIN PERSON I SPOKE WITH: ELISA CONSULTING PHYSICIAN: DR. NYE (DR. GARCIA alteration tailor apprentice) ONLINE COMMUNITY MANAGER PHONE NUMBER: [phone] ORDERING PHYSICIAN: DR. HOLGUIN Addendum: 10/03/18 at 0430 by Shonna Quiroz AK/ (DR. SANDOVAL METAL CASKET MAKER)
--- NOTE | 2018-10-03 02:30 | NUR ---
initial notes: pt is awake, alert,oriented x 4. no pain, no sob or acute distress. vital sign are with in normal limit.no skin breakdown. iv lock at right ac gauge 20- intact and patent. assess pt. explained plan of care. instructed to use call light. call for assistance. call ight in reach. side rails up low bed position.pt refused bed alarm. bed is lock. will continue to monitor.
--- NOTE | 2018-10-03 04:00 | NUR ---
notes: sleeping, no pain. no sob. stable. call light in reach. will monitor.
--- NOTE | 2018-10-03 06:07 | NUR ---
notes; sleeping, comfortbale. breathing ok. no distress. stable. will continue to monitor.
--- NOTE | 2018-10-03 07:15 | NUR ---
closing: pt is sleeping on her side. no distress. stable. needs attended the whole shift. bedside report to am rn.
--- NOTE | 2018-10-03 08:00 | NUR ---
RN OPENING NOTE PATIENT IS RESTING IN BED, ALERT ORIENTED X4, PATIENT DENIES PAIN OR DISCOMFORT. PATIENT WAS ASSESSED, VITAL SIGNS ARE STABLE. PATIENT WAS HELPED TO THE BATH ROOM WITH THE WALKER. FOR VOIDING URINE, BED AT LOW POSITION AND CALL LIGHT WITHIN REACH, WILL CONTINUE TO MONITOR AND WILL PASS THE MORNING MEDICATIONS.
[2018-10-03] MEDS: HYDROCHLOROTHIAZIDE 25 MG TABLET (HCTZ) PO SCH (08:49)
[2018-10-03] MEDS: ASPIRIN 81 MG TAB.CHEW PO SCH (08:50)
[2018-10-03] MEDS: ATENOLOL 50 MG TABLET (TENORMIN) PO SCH (08:50)
[2018-10-03] MEDS ORDERED: ENOXAPARIN SODIUM 120 MG/0.8 ML SYRINGE SUBCUT SCH (09:00)
--- NOTE | 2018-10-03 10:00 | NUR ---
RN NOTE PATIENT WAS GIVEN HER MEDICATION, PATIENT DENIES PAIN OR DISCOMFORT. WILL CONTINUE TO MONITOR.
[2018-10-03] MEDS ORDERED: POTASSIUM CHLORIDE 20 MEQ TAB.PRT.SR PO ONE (11:45)
--- NOTE | 2018-10-03 12:00 | NUR ---
RN NOTE PATIENT IS RESTING IN BED. DENIES PAIN OR DISCOMFORT. DR. POZO AND DR. SANDOVAL HAS SEEN THE PATIENT ALSO PATIENT WAS SEEN BY DR. HOLGUIN. PATIENT CT SCAN AND ECHO SHOWS NORMAL PATTERN, PATIENT WAS PUT ON IV ANTIBIOTICS AND MAG SULPHATE IVPB PATIENT WAS THEN SERVED HER LUNCH, WILL CONTINUE TO MONITOR.
[2018-10-03] MEDS: ENOXAPARIN SODIUM 80 MG/0.8 ML SYRINGE SUBCUT SCH ×2 (12:11→21:43)
[2018-10-03] MEDS: cefTRIAXone 1 GM in D5W 50 ML IV SCH (12:52)
[2018-10-03] MEDS ORDERED: AZITHROMYCIN 500 MG in NS 250 ML IV SCH (13:00)
[2018-10-03] MEDS ORDERED: MAGNESIUM SULFATE 50 ML IV ONE (13:15)
[2018-10-03] MEDS ORDERED: IPRATROPIUM/ALBUTEROL SULFATE 3 ML AMPUL.NEB (DUONEB) INH PRN (13:15)
[2018-10-03] MEDS ORDERED: IPRATROPIUM/ALBUTEROL SULFATE 3 ML AMPUL.NEB (DUONEB) INH SCH (14:00)
--- NOTE | 2018-10-03 14:00 | NUR ---
RN NOTE PATIENT WAS ASSISTED TO THE BATHROOM FOR VOIDING URINE. RETURNED BACK TO BED, FAMILY BY BEDSIDE,
[2018-10-03] MEDS: methylPREDNISolone SOD SUCC/PF 62.5 MG/ML VIAL IVP SCH ×2 (14:35→21:40)
[2018-10-03] MEDS: IPRATROPIUM/ALBUTEROL SULFATE 3 ML AMPUL.NEB (DUONEB) INH SCH ×3 (15:31→23:30)
--- NOTE | 2018-10-03 16:00 | NUR ---
RN NOTE PATIENT WAS GIVEN HER MEDICATIONS. PATIENT'S SON BY BED SIDE. PATIENT DENIES PAIN OR DISCOMFORT. WILL CONTINUE TO MONITOR.
--- NOTE | 2018-10-03 18:00 | NUR ---
RN CLOSING NOTE PATIENT WAS AMBULATED WITH ASSIST WITH WALKER TO THE BATHROOM THEN PATIENT WAS SERVED HER DINNER. SON IS BY THE BED SIDE, BED AT LOW POSITION AND CALL LIGHT WITHIN REACH BED ALARM IS ON. PATIENT WAS INSTRUCTED TO CALL FOR ANY NEED. WITH HOURLY ROUNDING ON THE PATIENT. PATIENT VITAL SIGNS ARE STABLE. WILL CONTINUE TO MONITOR AND WILL ENDORSE TO NEXT SHIFT.
--- NOTE | 2018-10-03 19:00 | NUR ---
change of shift.pt.presents quiescent affect;calm,family@bedside.pt.presents general status stable.respiratory status stable@room air;unlabored.pt.presents iv acces;lock.pt.capable to reposition self.pt.presents walker;from home.call light/ telephone w/in the reach of the pt.
--- NOTE | 2018-10-03 20:00 | NUR ---
pt.assessed.v/s assessed;values w/ion normal limits.i have apprised the pt.that snacks/beverages re available w/in the shift. no requests posited@this hour.pt.had stated that she presents gas pain and is constipated.i am to review the emar:med- list.no c/o pain,nausea.general status stable.respiratory status stable.call light/telephone w/in the reach of the pt.
--- NOTE | 2018-10-03 20:18 | NUR ---
Paged Dr. Hough.
--- NOTE | 2018-10-03 20:20 | NUR ---
has been paged re;pat's gi status.awaiting the return call per .
--- NOTE | 2018-10-03 20:45 | NUR ---
has return the page.i have apprised of the pt's gi status;pt.presents gas pain and is constipated. has ordered mom;30ml po daily,senokot;2 tabs q-hs,simethicone;80mg po tid:the 1st doses tonight of the 3 medications.i have apprised the pt.to f/u re;the administration of the medications.
--- NOTE | 2018-10-03 21:30 | NUR ---
2100p medications administered;including the gi medications;mom,sencam,simethicone:po. i have administered solumedrol;ivp,.and i have administered lovenox;160mg sq.i have rotated the sites;pt.presents ecchymosis @some administration sites.no requests posited @this hour.
[2018-10-03] MEDS: MILK OF MAGNESIA 30 ML UDC PO SCH (21:38)
[2018-10-03] MEDS: SENNOSIDES 8.6 MG TABLET PO SCH (21:39)
[2018-10-03] MEDS: SIMETHICONE 80 MG TAB.CHEW PO SCH ×2 (21:39→21:56)
--- NOTE | 2018-10-03 22:00 | NUR ---
pt.assessed.pt.states she is fine;no bm yet.general status stable.respiratory status stable. pt.capable to reposition self.call light/telephone w/in the reach of the pt.
--- NOTE | 2018-10-04 | NUR ---
pt.assessed.v/s assessed;values w/in normal limits.no requests posited@this hour.pt.presents quiescent affect;calm. somnolent.pt.capable to reposition self.general statu stable.respiratory status stable.unlabored.call light/telephone w/in the reach of the pt.
[2018-10-04 00:09] VITALS: BP_SYST 112
--- NOTE | 2018-10-04 02:00 | NUR ---
pt.assessed.pt.presents quiescent affect;calm,somnolent.pt.capable to reposition self.general status stable. respiratory status stable.call light/telephone w/in the reach of the pt.
[2018-10-04] MEDS: IPRATROPIUM/ALBUTEROL SULFATE 3 ML AMPUL.NEB (DUONEB) INH SCH ×6 (03:00→23:07)
--- NOTE | 2018-10-04 04:00 | NUR ---
pt.assessed.pt.presents quiescent affect;calm,somnolent.general status stable.respiratory status stable. pt.capable to reposition self.call light/telephone w/in the reach of the pt.
[2018-10-04] MEDS: methylPREDNISolone SOD SUCC/PF 62.5 MG/ML VIAL IVP SCH ×3 (05:53→21:20)
--- NOTE | 2018-10-04 06:30 | NUR ---
pt.assessed.pt.awake viewing tv programming.no c/o pain,nausea.i have administered solumedrol;65mg ivp. pt.had requested cranberry juice.i have provided the juice.general status stable.respiratory status stable. pt.capable to reposition self.call light/telephone w/in the reach of the pt.
--- NOTE | 2018-10-04 07:33 | NUR ---
Opening Note: Patient in bed resting. Patient denies pain and discomfort. Breathing is even and unlabored with no distress noted. IV patent and intact. Safety precautions in place; bed in lowest position, wheels locked, side rails x3, bed alarm activated and call light within reach. No needs at this time. Will continue to monitor.
[2018-10-04 08:04] VITALS: BP_SYST 160
[2018-10-04] MEDS: MILK OF MAGNESIA 30 ML UDC PO SCH (09:03)
[2018-10-04] MEDS: SIMETHICONE 80 MG TAB.CHEW PO SCH ×3 (09:03→20:19)
[2018-10-04] MEDS: HYDROCHLOROTHIAZIDE 25 MG TABLET (HCTZ) PO SCH (09:04)
[2018-10-04] MEDS: ASPIRIN 81 MG TAB.CHEW PO SCH (09:04)
[2018-10-04] MEDS: ATENOLOL 50 MG TABLET (TENORMIN) PO SCH (09:05)
[2018-10-04] MEDS ORDERED: ENOXAPARIN SODIUM 40 MG/0.4 ML SYRINGE SUBCUT ONE (09:45)
[2018-10-04] MEDS ORDERED: BUDESONIDE 0.5 MG/2 ML AMPUL.NEB INH ONE (09:45)
--- NOTE | 2018-10-04 10:08 | NUR ---
Rounds: Patient in bed resting. No distress noted. Will continue to monitor.
--- NOTE | 2018-10-04 10:42 | NUR ---
Spoke to Dr. Hough: Spoke to Dr. Hough regarding patient's complaint of headache, orders received. Orders to be entered by RN.
[2018-10-04] MEDS: cefTRIAXone 1 GM in D5W 50 ML IV SCH (11:21)
[2018-10-04] MEDS: ACETAMINOPHEN 325 MG TABLET PO PRN ×2 (11:22→20:19)
[2018-10-04 11:27] VITALS: BP_SYST 124
--- NOTE | 2018-10-04 12:42 | NUR ---
Rounds: Patient in bed resting. Patient denies headache or discomfort at this time. Breathing is even and unlabored on room air when resting. Morning medications tolerated well. Safety precautions in place and call light within reach. No needs at this time. Will continue to monitor.
--- NOTE | 2018-10-04 14:25 | NUR ---
Rounds: Patient in bed resting, no distress noted. Will continue to monitor.
[2018-10-04 15:29] VITALS: BP_SYST 124
--- NOTE | 2018-10-04 15:35 | NUR ---
Nutrition Education RD provided nutrition education on the topics of low-sodium and weight loss management per FNS Director request d/t pt asking for multiple sodium-laden condiments and snacks from FNS Dept. Pt was not interested in engaging in education session as she was upset about her lunch and alternative meal selection (turkey sandwiches) that were not provided. RD attempted to call pt's primary RN; no response. RD to continue to follow up as per nutrition care standards.
--- NOTE | 2018-10-04 16:15 | NUR ---
Rounds: Patient in bed resting, family at bedside. Patient denies pain and discomfort. Breathing is even and unlabored with no distress noted. Safety precautions in place and call light within reach. No needs at this time. Will continue to monitor.
--- NOTE | 2018-10-04 18:20 | NUR ---
Closing Note: Patient in bed resting. Patient denies pain and discomfort. Breathing is even and unlabored with no distress noted. IV patent and intact. Safety precautions in place; bed in lowest position, wheels locked, side rails x3, bed alarm activated and call light within reach. All needs met. Will endorse plan of care to NOC, nurse.
--- NOTE | 2018-10-04 19:05 | NUR ---
OPENING NOTES Late entry due to patient care. Bedside report received from dayshift nurse. Patient received lying in bed, talking on the phone, no s/s of acute distress noted. Breathing even and unlabored. Patient's son present at bedside. Patient denies any pain or discomfort at this time. HOB slightly raised. IV patent, no signs of infiltration or infection noted. Call light with patient, instructed to call for any assistance, patient verbalized understanding.
[2018-10-04] MEDS: BUDESONIDE 0.5 MG/2 ML AMPUL.NEB INH SCH (19:15)
[2018-10-04 20:00] VITALS: BP_SYST 132
[2018-10-04] MEDS: SENNOSIDES 8.6 MG TABLET PO SCH (20:19)
--- NOTE | 2018-10-04 21:00 | NUR ---
ROUNDS Patient in bed watching on her phone. No signs of discomfort noted. Chest rise and fall even bilaterally. Call light with patient. Will continue to monitor.
--- NOTE | 2018-10-04 23:00 | NUR ---
ROUNDS Patient in bed sleeping. No s/s of acute distress noted. Breathing even and unlabored. Call light with in reach. Will continue to monitor.
[2018-10-05 00:13] VITALS: BP_SYST 126
--- NOTE | 2018-10-05 01:30 | NUR ---
HEADACHE Patient complained of headache, 3/10 pain. PRN medication to be administered. Will continue to monitor and reassess.
[2018-10-05] MEDS: ACETAMINOPHEN 325 MG TABLET PO PRN ×2 (01:32→20:15)
--- NOTE | 2018-10-05 03:00 | NUR ---
ROUNDS/BREATHING TREATMENT Patient in bed resting at this time. RT at bedside setting up breathing treatment. Call light with patient.
[2018-10-05] MEDS: IPRATROPIUM/ALBUTEROL SULFATE 3 ML AMPUL.NEB (DUONEB) INH SCH ×6 (03:07→23:00)
--- NOTE | 2018-10-05 05:00 | NUR ---
ROUNDS Patient in bed sleeping comfortably. No signs of discomfort noted. Chest rise and fall even bilaterally. Call light within reach. Will continue to monitor.
[2018-10-05] MEDS: methylPREDNISolone SOD SUCC/PF 62.5 MG/ML VIAL IVP SCH (05:37)
--- NOTE | 2018-10-05 06:19 | NUR ---
CLOSING NOTES Patient in bed sleeping at this time. No s/s of acute distress noted. Breathing is even and unlabored. IV site is patent, no signs of infiltration or infection noted. All needs met throughout shift. Fall and safety precautions maintained throughout shift. Will continue to monitor until patient care is endorsed to oncoming dayshift nurse.
[2018-10-05] MEDS: BUDESONIDE 0.5 MG/2 ML AMPUL.NEB INH SCH ×2 (07:10→19:45)
[2018-10-05 08:00] VITALS: BP_SYST 133
[2018-10-05] MEDS: MILK OF MAGNESIA 30 ML UDC PO SCH (08:38)
[2018-10-05] MEDS: ASPIRIN 81 MG TAB.CHEW PO SCH (08:38)
[2018-10-05] MEDS: SIMETHICONE 80 MG TAB.CHEW PO SCH ×3 (08:38→20:15)
[2018-10-05] MEDS: ATENOLOL 50 MG TABLET (TENORMIN) PO SCH (08:39)
[2018-10-05] MEDS: HYDROCHLOROTHIAZIDE 25 MG TABLET (HCTZ) PO SCH (08:40)
[2018-10-05] MEDS: ENOXAPARIN SODIUM 40 MG/0.4 ML SYRINGE SUBCUT SCH (08:40)
--- NOTE | 2018-10-05 08:40 | NUR ---
CAFETERIA PERSONNEL AT BEDSIDE TALKING TO PT RE PT'S REQUEST FOR MEALS.
--- NOTE | 2018-10-05 08:45 | NUR ---
SEEN PT'S SON AT BEDSIDE EATING PT'S FOOD, WHICH PT SAID SHE DOES NOT WANT.
--- NOTE | 2018-10-05 09:37 | NUR ---
OPENING NOTES, RECEIVED PT IN BED, PT IS AAOX4, DENIES PAIN, NO SOB. PT C/O OF SOME CHEST CONGESTION, PT STATED SEEMS LIKE SHE HAS PHLEGM BUT UNABLE TO COUGH IT OUT. PT STATED SHE DOES NOT WANT THE BREATHING TREATMENTS. SAFETY PRECAUTION IN PLACE. CALL LIGHT IN REACHT. BED IN LOW POSITION. WILL CONT TO MONITOR.
[2018-10-05] MEDS ORDERED: FLUTICASONE PROPIONATE 50 mCg/SPRAY 16 GM NS ONE (10:00)
[2018-10-05] MEDS ORDERED: guaiFENesin ER 600 MG TAB PO ONE (10:00)
--- NOTE | 2018-10-05 10:00 | NUR ---
PT IN BED, FAMILY AT BEDSIDE. NO C/O PAIN. NO SOB. WILL CONT TO MONITOR,.
[2018-10-05] MEDS: cefTRIAXone 1 GM in D5W 50 ML IV SCH (11:23)
[2018-10-05 11:34] VITALS: BP_SYST 138
--- NOTE | 2018-10-05 12:21 | NUR ---
PT DISCONNECTED FROM IV. PT AMBULATED TO BATHROOM WITH WALKER. PT HAS STEADY GAIT. ENCOURAGED TO BE CAREFUL .
--- NOTE | 2018-10-05 13:10 | NUR ---
NON-COMPLIANCE TO DIET RD received multiple reports about pt requesting for double/triple serving of food and/or extra tray. Pt is on a restricted 2gm Na diet per MD order. Previous RD went to see pt yesterday to provide education, but pt declined and stated she didn't want to receive education. drum stock clerk s/w pt and was advised multiple times that she can not receive additional food items but pt would still insist on getting extra food and say "I don't care about the diet". TRIPP, RYLIE
--- NOTE | 2018-10-05 13:30 | NUR ---
Dietitian Recommendations *Recommend continuing 2gm Na diet per MD orders. Please see Nutritional Assessment for details. TRIPP, RD
--- NOTE | 2018-10-05 14:57 | NUR ---
PM MEDS GIVEN EARLIER, PT IS EATING LUNCH AT THIS TIME. NO C /O PAIN, NO SOB. WILL CONT TO MONITOR.
[2018-10-05 15:39] VITALS: BP_SYST 152
[2018-10-05] MEDS: methylPREDNISolone SOD SUCC 40 MG/ML VIAL IVP SCH (18:15)
--- NOTE | 2018-10-05 18:21 | NUR ---
CLOSING NOTES, PT IN BED, FAMILY AT BEDSIDE, NO C/O PAIN, NO SOB NO RESP DISTRESS. PT TALKING OVER THE PHONE. PT ON STABLE CONDITION, NO FEVER. WILL ENDORSE TO NIGHT RN.
--- NOTE | 2018-10-05 19:30 | NUR ---
PM ASSESSMENT REPORT RECEIVED FROM AM RN. PT RECEIVED SITTING UP IN BED, AAOX4 AND ABLE TO VERBALIZE NEEDS. SON IS AT BEDSIDE. VSS, NO S/S OF ACUTE DISTRESS NOTED. PT ON RA, BREATHING IS EVEN AND UNLABORED. LFA 22G TO SL, PATENT AND INTACT. PT C/O RODRÍGUEZ AT THIS TIME WILL MEDICATE PER ORDERS. NO OTHER NEEDS VERBALIZED PER PT OR FAMILY. HOB ELEVATED, BED IN LOWEST POSITION, CALL LIGHT IN REACH. WILL CONTINUE TO MONITOR PT.
[2018-10-05 20:00] VITALS: BP_SYST 141
[2018-10-05] MEDS: guaiFENesin ER 600 MG TAB PO SCH (20:15)
[2018-10-05] MEDS: SENNOSIDES 8.6 MG TABLET PO SCH (20:15)
--- NOTE | 2018-10-05 22:45 | NUR ---
WOUND PT CUT FINGER SHE WAS ARRANGING INGRAM INTO A VASE WITH SCISSORS SON BROUGHT IN. PT MADE AWARE THAT SHE IS NOT ALLOWED TO HAVE SHARPS IN ROOM AND VERBALIZED UNDERSTANDING, SON WILL BRING THEM HOME. 1 CM LAC NOTED TO R FIRST FINGER. MINIMAL BLEEDING NOTED. WOUND SITE CLEANSED WITH NS AND COVERED WITH BANDAGE. PHOTOGRAPHS TAKEN. WILL CONTINUE TO MONITOR.
--- NOTE | 2018-10-05 23:43 | NUR ---
REPORT GIVEN TO TIA VASQUEZ TO ASSUME CARE.
--- NOTE | 2018-10-05 23:45 | NUR ---
OPENING NOTE RECEIVED ENDORSEMENT REPORT FROM NURSE HEALY AT BEDSIDE. PT IS AOX4. NO SOB NOTED. NO DISTRESS NOTED. CHEST RISE EVEN AND UNLABORED. NO S/S OF PAIN NOTED. PT DENIES PAIN. IV CLEAN, DRY, PATENT AND INTACT. ORIENTED PT TO HOSPITAL ROOM AND HOW TO USE ROOM PHONE AND CALL LIGHT TO CALL FOR ASSISTANCE. PT VERBALIZED UNDERSTANDING. SAFETY MEASURES IN PLACE. CALL LIGHT/ROOM PHONE WITHIN REACH, BED ALARM ON, BED WHEELS LOCKED, BED IN LOWEST POSITION, BED WHEELS LOCKED, SIDE RAILS UP X3, BEDSIDE TABLE WITHIN REACH. NO OTHER NEEDS AT THIS TIME. WILL CONTINUE TO MONITOR PT AND CONTINUE PT'S POC.
--- NOTE | 2018-10-06 00:45 | NUR ---
RN ROUNDS PT RESTING IN BED. NO SOB NOTED. NO DISTRESS NOTED. CHEST RISE EVEN AND UNLABORED. NO S/S OF PAIN NOTED. NO NEEDS AT THIS TIME. SAFETY MEASURES IN PLACE. WILL CONTINUE TO MONITOR PT AND CONTINUE PT'S POC.
[2018-10-06 01:18] VITALS: BP_SYST 130
--- NOTE | 2018-10-06 02:10 | NUR ---
RN ROUNDS PT RESTING IN BED WITH EYES CLOSED. NO SOB NOTED. NO DISTRESS NOTED. CHEST RISE EVEN AND UNLABORED. NO S/S OF PAIN NOTED. NO NEEDS AT THIS TIME. SAFETY MEASURES IN PLACE. WILL CONTINUE TO MONITOR PT AND CONTINUE PT'S POC.
[2018-10-06] MEDS: methylPREDNISolone SOD SUCC 40 MG/ML VIAL IVP SCH (06:29)
[2018-10-06] MEDS: BUDESONIDE 0.5 MG/2 ML AMPUL.NEB INH SCH ×2 (06:45→20:02)
[2018-10-06] MEDS: IPRATROPIUM/ALBUTEROL SULFATE 3 ML AMPUL.NEB (DUONEB) INH SCH ×5 (06:45→23:43)
--- NOTE | 2018-10-06 06:51 | NUR ---
CLOSING NOTE PT RESTING IN BED. NO SOB NOTED. NO DISTRESS NOTED. CHEST RISE EVEN AND UNLABORED. NO S/S OF PAIN NOTED. PT DENIES PAIN. IV CLEAN, DRY, PATENT AND INTACT. PAIN MANAGED THROUGHOUT SHIFT. ALL NEEDS MET THROUGHOUT SHIFT. ALL SCHEDULED MEDICATIONS ADMINISTERED ORDERED. SAFETY MEASURES IN PLACE THROUGHOUT SHIFT. NO NEEDS AT THIS TIME. WILL CONTINUE TO MONITOR PT. PT CARE WILL BE ENDORSED TO DAY NURSE.
--- NOTE | 2018-10-06 07:45 | NUR ---
AM note patient resting in bed, a/ox4, denies pain, requesting juice, assessment complete, patient is room air, IV line is patent no s/s of infiltration, educated patient on plan of care and call light system, patient verbalized understanding, continuing to monitor, bed in lowest position, two side rails up, call light within reach, fall and aspiration precautions in place.
[2018-10-06 08:16] VITALS: BP_SYST 142
[2018-10-06] MEDS: MILK OF MAGNESIA 30 ML UDC PO SCH (08:23)
[2018-10-06] MEDS: FLUTICASONE PROPIONATE 50 mCg/SPRAY 16 GM NS SCH (08:24)
[2018-10-06] MEDS: HYDROCHLOROTHIAZIDE 25 MG TABLET (HCTZ) PO SCH (08:24)
[2018-10-06] MEDS: SIMETHICONE 80 MG TAB.CHEW PO SCH ×3 (08:25→20:11)
[2018-10-06] MEDS: ATENOLOL 50 MG TABLET (TENORMIN) PO SCH (08:25)
[2018-10-06] MEDS: guaiFENesin ER 600 MG TAB PO SCH ×2 (08:25→20:11)
[2018-10-06] MEDS: ASPIRIN 81 MG TAB.CHEW PO SCH (08:25)
--- NOTE | 2018-10-06 08:25 | NUR ---
Medication patient resting in bed, awake, denies pain, educated on all medications uses and potential side effects, she verbalized understanding and tolerated well, no other needs at this time, bed in lowest position, two side rails up, call light within reach, fall and aspiration precautions in place.
[2018-10-06] MEDS: ENOXAPARIN SODIUM 40 MG/0.4 ML SYRINGE SUBCUT SCH (08:31)
--- NOTE | 2018-10-06 10:30 | NUR ---
RN rounds patient resting in bed, awake, denies pain, denies shortness of breath, stable condition, continuing to monitor, bed in lowest position, two side rails up, call light within reach, fall and aspiration precautions in place.
--- NOTE | 2018-10-06 11:10 | NUR ---
DC planning: rec'd orders for home nebulizer and neb meds--I called Nissa at [facility] at [phone] -left vm to call me back--faxed orders to [facility] fax#[phone] per fax number given on Nissa's voice message--I also faxed dc plan orders to Perla @ [facility] at fax#[phone] per BAR notes--ph# for Perla at [facility] is [phone]--line is busy-waiting for call back from [facility]. KELLIE VASQUEZ
[2018-10-06 11:29] VITALS: BP_SYST 131
[2018-10-06] MEDS: cefTRIAXone 1 GM in D5W 50 ML IV SCH (12:05)
--- NOTE | 2018-10-06 12:14 | NUR ---
RN rounds/medication patient resting in bed, awake, patient is washing herself. Educated patient on IV antibiotic uses and potential side effects, she verbalized understanding, IV line is patent and infusing well, continuing to monitor, bed in lowest position, two side rails up, call light within reach, fall and aspiration precautions in place.
--- NOTE | 2018-10-06 15:07 | NUR ---
RN rounds/Medication patient resting in bed, awake, denies pain, denies shortness of breath, educated on scheduled medication uses and potential side effects, she verbalized understanding and tolerated well, updated patient on discharge planning, she verbalized understanding, continuing to monitor, bed in lowest position, two side rails up, call light within reach, fall and aspiration precautions in place.
--- NOTE | 2018-10-06 15:12 | NUR ---
Called Case Management to get update regarding Nebulizer for home, left message, will follow up as needed.
[2018-10-06 16:04] VITALS: BP_SYST 127
--- NOTE | 2018-10-06 16:31 | NUR ---
Case mgt: I called [facility] for DME at [phone]-(# given to me by Obdulia Le at [facility])-number is not working--I called Obdulia Le back at [facility] [phone]--She is calling [facility] and will call me right back. I updated nurse Inderjit that I am waiting to hear back from Obdulia Le at [facility]
--- NOTE | 2018-10-06 16:44 | NUR ---
Case mgt: I called Obdulia Le dc coordinator at [facility] at [phone] and explained there is dc home order but not safe to send pt home without nebulizer machine--Obdulia Le will try another DME vendor and I gave her direct ph# to med/surg unit. Nurse Inderjit updated with this information. KELLIE VASQUEZ
[2018-10-06] MEDS: PREDNISONE 20 MG TABLET PO SCH (17:33)
--- NOTE | 2018-10-06 17:33 | NUR ---
Medication/DC planning patient resting in bed, educated on new medication uses and potential side effects, she verbalized understanding and tolerated well, informed patient that nebulizer is still being authorized and will probably be done by tomorrow morning, patient verbalized understanding, no other needs at this time, bed in lowest position, two side rails up, call light within reach, fall and aspiration precautions in place.
--- NOTE | 2018-10-06 17:54 | NUR ---
Paged Dr. Hough to inform that Nebulizer has not yet been arranged for discharge.
--- NOTE | 2018-10-06 18:44 | NUR ---
Dr. Hough rounds stated that patient can go home and wait for nebulizer to be arranged at home, would like to get clearance from Dr. Micky monique.
--- NOTE | 2018-10-06 18:46 | NUR ---
Jagruti Wekes to inform of DC order, and to clarify if patient needs to have the nebulizer prior to going home or if patient can DC home and wait for the nebulizer. Addendum: 10/06/18 at 1854 by Inderjit Trinidad RN Dr. Darryn oates call Addendum: 10/06/18 at 1914 by Inderjit Trinidad RN Dr. Cates call back stated he does not know enough about the patient to make a decision about her discharge and the nebulizer, defer to Dr. Gianluca Hough at nursing station, stated to keep patient overnight and then to discharge tomorrow. Informed NOC shift nurse.
--- NOTE | 2018-10-06 18:50 | NUR ---
PAGED I PAGED DR. PARRIS LOCKHART @ [id number] I SPOKE WITH GARFIELDRY PAUL SANDOVAL HEAD MACHINIST FOR DR. NYE
--- NOTE | 2018-10-06 18:54 | NUR ---
Closing note patient resting in bed, awake, denies pain, all needs met, will endorse report to NOC shift nurse, bed in lowest position, two side rails up, call light within reach, fall and aspiration precautions in place.
--- NOTE | 2018-10-06 19:10 | NUR ---
PAGE I PAGED DR. NYE @ 1909 I SPOKE WITH GARFIELDRY PAUL SANDOVAL CARDIOVASCULAR DISEASE SPECIALIST AT THIS MOMENT DR. SANDOVAL CALLED BACK AT 1911
--- NOTE | 2018-10-06 19:12 | NUR ---
Dr. Fermin called back Dr. Fermin called back and talked to CHRISTINA Jansen. not familiar with the patient, referred back to Dr. Hough re no nebulizer when patient will be discharge tonight. CHRISTINA Jansen talked to Dr. Hough who's still in the nurse's unit. Dr. Hough canceled DC order for tonight. Patient aware.
--- NOTE | 2018-10-06 19:36 | NUR ---
Initial Note Received patient awake, alert and oriented with son at the bedside. Mild SOB noted upon exertion. No complain of pain or n/v at this time. VS stable. Patient's DC order was cancelled. Saline lock. Obese. Call light within reach. Bed alarm off per patient's request. Bed at lowest position at all times. Care and monitoring will be provided per protocol. Hygiene products provided. Needs attended. Kept warm and comfortable.
[2018-10-06 20:00] VITALS: BP_SYST 120; BP_SYST 150
--- NOTE | 2018-10-06 20:10 | NUR ---
RN Note Due meds given, tolerated well. Patient just had HHN. No other complaints. Needs attended.
[2018-10-06] MEDS: SENNOSIDES 8.6 MG TABLET PO SCH (20:11)
[2018-10-06] MEDS: ACETAMINOPHEN 325 MG TABLET PO PRN (21:30)
--- NOTE | 2018-10-06 21:30 | NUR ---
Headache Medicated for headache, comfort measures provided. Patient's son arrived. Needs attended. No other complaints.
--- NOTE | 2018-10-06 22:45 | NUR ---
Transfer of Care Afebrile. No changes from previous assessment. Medicated for headache one time. Care and monitoring provided per protocol. Call light within reach. Bed alarm off per patient's request. Bed at lowest position at all times. Walker at the bedside. Needs attended. Endorsed to CHRISTINA Wayne.
--- NOTE | 2018-10-06 23:00 | NUR ---
ROUNDS RECEIVED PATIENT IN BED, AWAKE, VITALS STABLE, WATCHING TV, NO COMPLAINTS AT THIS TIME. NEEDS ATTENDED TO. SAFETY AND FALL PRECAUTION MEASURES IN PLACED. CALL LIGHT PLACED WITHIN REACH.
[2018-10-07 00:46] VITALS: BP_SYST 154
--- NOTE | 2018-10-07 02:06 | NUR ---
ROUNDS PATIENT ASLEEP, RESPIRATIONS EVEN AND UNLABORED, NO SIGNS OF ANY PAIN AND DISCOMFORT NOTED. WILL CONTINUE TO MONITOR.
[2018-10-07] MEDS: IPRATROPIUM/ALBUTEROL SULFATE 3 ML AMPUL.NEB (DUONEB) INH SCH ×4 (03:00→15:43)
--- NOTE | 2018-10-07 04:14 | NUR ---
ROUNDS PATIENT ASLEEP, NO SOB NOR PAIN AND DISCOMFORT NOTED, VITALS STABLE. WILL CONTINUE TO MONITOR.
--- NOTE | 2018-10-07 06:03 | NUR ---
CLOSING NOTES PATIENT AWAKE, NO COMPLAINTS AT THIS TIME, ALL NEEDS ATTENDED TO. SAFETY AND FALL PRECAUTION MEASURES MAINTAINED. BED IN LOW AND LOCKED POSITION. CALL LIGHT PLACED WITHIN REACH.
[2018-10-07] MEDS: BUDESONIDE 0.5 MG/2 ML AMPUL.NEB INH SCH (07:01)
--- NOTE | 2018-10-07 07:25 | NUR ---
OPENING NOTE RECEIVED PT FROM NIGHT RN. PT IS AWAKE AND SITTING UP IN BED. PT APPEARS TO BE IN NO DISTRESS, PAIN, OR SHORTNESS OF BREATH. PT IS A&OX4. FALL PRECAUTIONS IN PLACE, BED IN LOWEST POSITION, CALL LIGHT WITHIN REACH, AND SIDE RAILS UP. WILL CONTINUE TO MONITOR.
[2018-10-07 08:30] VITALS: BP_SYST 137
[2018-10-07] MEDS: SIMETHICONE 80 MG TAB.CHEW PO SCH ×2 (09:55→15:00)
[2018-10-07] MEDS: ASPIRIN 81 MG TAB.CHEW PO SCH (09:55)
[2018-10-07] MEDS: ATENOLOL 50 MG TABLET (TENORMIN) PO SCH (09:56)
[2018-10-07] MEDS: guaiFENesin ER 600 MG TAB PO SCH (09:58)
[2018-10-07] MEDS: PREDNISONE 20 MG TABLET PO SCH (09:58)
[2018-10-07] MEDS: MILK OF MAGNESIA 30 ML UDC PO SCH (09:59)
[2018-10-07] MEDS: FLUTICASONE PROPIONATE 50 mCg/SPRAY 16 GM NS SCH (10:02)
[2018-10-07] MEDS: ENOXAPARIN SODIUM 40 MG/0.4 ML SYRINGE SUBCUT SCH (10:10)
--- NOTE | 2018-10-07 10:30 | NUR ---
ROUNDING NOTE PATIENT RESTING COMFORTABLY IN BED. PATIENT IS WATCHING TV AND SITTING UP. FALL RISK PRECAUTIONS IN PLACE; CALL LIGHT WITHIN REACH. WILL CONTINUE TO MONITOR.
[2018-10-07] MEDS: ACETAMINOPHEN 325 MG TABLET PO PRN (10:37)
--- NOTE | 2018-10-07 11:01 | NUR ---
DC Planning: f/u with Obdulia Le, dc coordinator at [facility] at [phone], [facility] for her to return call with update nebulizer arrangement. BEKA Jansen RN ,said that PCP ordered pt to okay to go home without nebulizer if concurred with dr. Weeks. Addendum: 10/07/18 at 1344 by Daria Vickers RN second call to Obdulia Le/Tanisha, again LVM to her to call back to update the nebulizer arrangement. Informed that the pt is to be dc home today. Addendum: 10/07/18 at 1618 by Daria Vickers RN >>F/U nebulizer delivery: beka Cobian at [facility]: said the machine was delivered to home by [employer] yesterday. But the pt said she did not receive any equipment. [employer] confirmed he will deliver the machine himself between 6-8 pm today. CM confirmed with pt and son that she received the call from [employer] for the delivery appointment chapo. CHRISTINA Jansen, made aware and may dc pt. today.
[2018-10-07 12:00] VITALS: BP_SYST 131
--- NOTE | 2018-10-07 12:30 | NUR ---
ROUNDING NOTE PT IS RESTING COMFORTABLY IN BED. PT IS LAYING DOWN APPEARS TO BE IN NO DISTRESS OR DISCOMFORT. FALL PRECAUTIONS IN PLACE, BED IN LOWEST POSITION AND CALL LIGHT WITHIN REACH OF PT.
[2018-10-07] MEDS: cefTRIAXone 1 GM in D5W 50 ML IV SCH (12:42)
--- NOTE | 2018-10-07 14:30 | NUR ---
ROUNDING NOTE PT IS RESTING COMFORTABLY IN BED. SPOKE WITH LICENSED HOME INSPECTOR ABOUT GETTING HER NEBULIZER DELIVERED TO HER HOME AND LICENSED HOME INSPECTOR STATED THAT IT WAS DELIVERED YESTERDAY AFTERNOON TO HER HOME PER INSURANCE. PT WAS GIVEN THIS INFORMATION. FALL PRECAUTIONS IN PLACE. BED IN LOWEST POSITION, CALL LIGHT WITHIN REACH OF PT. WILL CONTINUE TO MONITOR.
[2018-10-07 16:02] VITALS: BP_SYST 131
--- NOTE | 2018-10-07 17:45 | NUR ---
D/C Patient Patient given medication reconciliation form and D/C instructions. Exit Care provided. Patient verbalized understanding. MD discussed with patient the results and treatment provided. Ambulatory with steady gait for discharge to home. Patient in stable condition, ID band removed. IV catheter removed, intact and dressing applied, no active bleeding. Rx of Augmentim, nebulizer, pulmoicort, duoneb given. Patient educated on pain management. All belongings sent with patient.
--- NOTE | 2018-10-12 13:33 | NUR ---
Discharge Follow Up Phone Call LEGAL ADMINISTRATIVE SECRETARY phoned patient, . Patient stated she was feeling better, but had a sore abdomen and bruises from the shots. She pointed them out to her PCP at her follow up appointment yesterday (10/11/18). Her PCP will continue to monitor. Patient filled her prescriptions and is taking her medications as directed. She is using her new nebulizer as directed and noticing improvement. Patient stated she was happy with her care at [facility] and requested PI contact her. LEGAL ADMINISTRATIVE SECRETARY sent an email to PI. No other questions or concerns.
== END 2018-10-07 17:45 | disposition home or self-care (01) | DRG 140 ==
LOC: SED 19:42 → STU 10-03 01:04 → SMU 10-05 18:51
PROVIDERS: ADMIT Family Medicine; ATTEND Family Medicine
DX: J44.0 Chronic obstructive pulmonary disease with (acute) lower respiratory infection (principal); E66.2 Morbid (severe) obesity with alveolar hypoventilation; J20.9 Acute bronchitis, unspecified; J45.901 Unspecified asthma with (acute) exacerbation; J44.1 Chronic obstructive pulmonary disease with (acute) exacerbation; Z68.45 Body mass index [BMI] 70 or greater, adult; E03.9 Hypothyroidism, unspecified; G89.29 Other chronic pain; M79.606 Pain in leg, unspecified; I10 Essential (primary) hypertension; F41.9 Anxiety disorder, unspecified; Z82.3 Family history of stroke; Z82.5 Family history of asthma and other chronic lower respiratory diseases; Z83.3 Family history of diabetes mellitus; Z98.84 Bariatric surgery status; Z98.891 History of uterine scar from previous surgery; Z79.899 Other long term (current) drug therapy
CPT/HCPCS: 36415; 36600; 71045; 71275; 80053; 81000-TC; 81025; 82803-TC; 83690-TC; 83880; 84484; 85025; 85610-TC; 85730-TC; 93005; 93306; 93970; 94640; 94760; 96372; 96374; 99285; G0378; J0456; J0696; J1030; J1650; J2060; J2930; J3475; J7050; J7060; J7512; J7620; J7626; Q9967

== ENCOUNTER 2019-06-12 20:55 | Inpatient (IN) | payer BC ==
[~2019-06-12] VITALS: Ht 154.9 cm; Wt 199.6 kg
[~2019-06-12 20:55] MED LIST changes: -ATEN-41 PO; +BECL10.62 IH; -CEPH-568 PO
[2019-06-12 21:10] VITALS: BP_SYST 157
[2019-06-12 22:52] LABS: BASOPHILS % (AUTO) 0.7 % (0.0-2.0); EOSINOPHILS % (AUTO) 0.6 % (0.0-4.0); HEMATOCRIT 42.4 % (36-48); LYMPHOCYTES # (AUTO) 1.4 K/uL (1.0-5.5); LYMPHOCYTES % (AUTO) 23.2 % (20.5-51.5); MEAN CORPUSCULAR HEMOGLOBIN 29 pg (27-31); MEAN CORPUSCULAR HGB CONC 33 % (32-36); MEAN CORPUSCULAR VOLUME 89 fL (79.0-98.0); MONOCYTES # (AUTO) 0.4 K/uL (0.0-1.0); MONOCYTES % (AUTO) 7.1 % (1.7-9.3); NEUTROPHILS % (AUTO) 68.4 % (40.0-70.0); PLATELET COUNT (AUTO) 177 K/uL (130-430); RED BLOOD CELL COUNT(AUTO) 4.79 MIL/uL (4.2-6.2); RED CELL DISTRIBUTION WIDTH 14.9 % (9.0-15.0); WHITE BLOOD COUNT (AUTO) 5.9 K/uL (4.8-10.8)
[2019-06-12 23:04] LABS: CALCIUM 8.8 mg/dL (8.4-11.0); CREATININE 0.6 mg/dL (0.55-1.30); POTASSIUM 3.8 mmol/L (3.5-5.1)
[2019-06-12 23:10] LABS: PROTHROMBIN TIME 10.3 SECS (9.5-12.5)
[2019-06-12 23:11] LABS: ALBUMIN 3.4 g/dL (3.4-4.8); TOTAL BILIRUBIN 0.4 mg/dL (0.0-1.0)
[2019-06-12] MEDS ORDERED: IPRATROPIUM/ALBUTEROL SULFATE 3 ML AMPUL.NEB (DUONEB) INH ONE (23:15)
[2019-06-12 23:45] LABS: CREATINE KINASE MB 3.8 ng/mL (0-3.6)
[2019-06-13] MEDS ORDERED: NACL 0.9% 1,000 ML IV ONE (00:30)
[2019-06-13] MEDS ORDERED: methylPREDNISolone SOD SUCC/PF 62.5 MG/ML VIAL IVP ONE (00:45)
[2019-06-13] MEDS ORDERED: IPRATROPIUM/ALBUTEROL SULFATE 3 ML AMPUL.NEB (DUONEB) INH ONE (01:30)
[2019-06-13] MEDS ORDERED: ATEN-41 PO (03:54)
[2019-06-13] MEDS ORDERED: CITA40TA22 PO (03:55)
[2019-06-13] MEDS ORDERED: LINA72CA PO (03:56)
[2019-06-13] MEDS ORDERED: ALBMDI INH (03:56)
[2019-06-13] MEDS ORDERED: FLUT16SP16 NS (03:57)
[2019-06-13] MEDS ORDERED: ALBU2.5V7 INH (03:57)
[2019-06-13] MEDS ORDERED: guaiFENesin/DEXTROMETHORPHAN 10 ML UDC PO PRN (04:15)
[2019-06-13 05:30] VITALS: BP_SYST 153
[2019-06-13] MEDS ORDERED: KCL 20 mEq in D5/0.45NS 1000mL 1,000 ML IV ONE (05:49)
[2019-06-13] MEDS: methylPREDNISolone SOD SUCC 40 MG/ML VIAL IVP SCH ×3 (06:09→17:04)
[2019-06-13] MEDS: KCL 20 mEq in D5/0.45NS 1000mL 1,000 ML IV SCH ×2 (06:12→17:04)
[2019-06-13] MEDS: LevALBUTEROL HCL 1.25 MG/0.5 ML *CONC.* VIAL.NEB (XOPENEX CONC.) INH SCH ×4 (07:00→23:30)
[2019-06-13 09:31] VITALS: BP_SYST 147
[2019-06-13 09:46] VITALS: BP_SYST 147
[2019-06-13 12:30] VITALS: BP_SYST 119
[2019-06-13] MEDS ORDERED: ATENOLOL 25 MG TABLET(TENORMIN) PO ONE (15:15)
[2019-06-13] MEDS: FLUTICASONE PROPIONATE 50 mCg/SPRAY 16 GM NS SCH (15:58)
[2019-06-13] MEDS: cefTRIAXone 1 GM in D5W 50 ML IV SCH (16:00)
[2019-06-13 16:45] VITALS: BP_SYST 143
[2019-06-13] MEDS: AZITHROMYCIN 500 MG in NS 250 ML IV SCH ×2 (17:02→23:01)
[2019-06-13] MEDS: BUDESONIDE 0.5 MG/2 ML AMPUL.NEB INH SCH (19:25)
[2019-06-13 20:00] VITALS: BP_SYST 140
[2019-06-13] MEDS: CITALOPRAM HYDROBROMIDE 20 MG TABLET PO SCH (22:01)
[2019-06-13] MEDS: guaiFENesin ER 600 MG TAB PO SCH (22:01)
[2019-06-13] MEDS: ENOXAPARIN SODIUM 40 MG/0.4 ML SYRINGE SUBCUT SCH (22:03)
[2019-06-14 00:19] VITALS: BP_SYST 149
[2019-06-14] MEDS: IBUPROFEN 800 MG TABLET PO PRN ×2 (00:21→09:36)
[2019-06-14] MEDS: methylPREDNISolone SOD SUCC 40 MG/ML VIAL IVP SCH ×4 (00:22→17:50)
[2019-06-14] MEDS: LevALBUTEROL HCL 1.25 MG/0.5 ML *CONC.* VIAL.NEB (XOPENEX CONC.) INH SCH ×6 (03:25→23:48)
[2019-06-14] MEDS: KCL 20 mEq in D5/0.45NS 1000mL 1,000 ML IV SCH ×2 (06:34→22:14)
[2019-06-14] MEDS: BUDESONIDE 0.5 MG/2 ML AMPUL.NEB INH SCH ×2 (07:03→20:01)
[2019-06-14 08:00] VITALS: BP_SYST 142
[2019-06-14] MEDS: guaiFENesin ER 600 MG TAB PO SCH ×2 (08:56→22:12)
[2019-06-14] MEDS: HYDROCHLOROTHIAZIDE 25 MG TABLET (HCTZ) PO SCH (08:57)
[2019-06-14] MEDS: FLUTICASONE PROPIONATE 50 mCg/SPRAY 16 GM NS SCH (08:59)
[2019-06-14] MEDS: LOSARTAN POTASSIUM 50 MG TABLET (COZAAR) PO SCH (08:59)
[2019-06-14] MEDS: ATENOLOL 25 MG TABLET(TENORMIN) PO SCH (09:24)
[2019-06-14 12:00] VITALS: BP_SYST 140
[2019-06-14 16:00] VITALS: BP_SYST 142
[2019-06-14] MEDS: cefTRIAXone 1 GM in D5W 50 ML IV SCH (16:24)
[2019-06-14] MEDS: AZITHROMYCIN 500 MG in NS 250 ML IV SCH (16:25)
[2019-06-14 20:00] VITALS: BP_SYST 147
[2019-06-14] MEDS ORDERED: MILK OF MAGNESIA 30 ML UDC PO ONE (21:30)
[2019-06-14] MEDS ORDERED: SENNOSIDES 8.6 MG TABLET PO PRN (21:30)
[2019-06-14] MEDS: CITALOPRAM HYDROBROMIDE 20 MG TABLET PO SCH (22:12)
[2019-06-14] MEDS: ENOXAPARIN SODIUM 40 MG/0.4 ML SYRINGE SUBCUT SCH (22:16)
[2019-06-14] MEDS: PEG 400/HYPROMELLOSE/GLYCERIN 15 ML DROPS OP SCH (23:15)
[2019-06-15 00:45] LABS: CKMB RELATIVE INDEX 1.6 (0.0-2.9); CREATINE KINASE MB 4.7 ng/mL (0-3.6)
[2019-06-15 01:55] VITALS: BP_SYST 171
[2019-06-15] MEDS: LevALBUTEROL HCL 1.25 MG/0.5 ML *CONC.* VIAL.NEB (XOPENEX CONC.) INH SCH ×5 (03:25→20:26)
[2019-06-15] MEDS: BUDESONIDE 0.5 MG/2 ML AMPUL.NEB INH SCH ×2 (07:11→20:27)
[2019-06-15 07:12] LABS: BASOPHILS % (AUTO) 0.4 % (0.0-2.0); HEMOGLOBIN 13.3 g/dL (12.0-16.0); LYMPHOCYTES # (AUTO) 2.5 K/uL (1.0-5.5); LYMPHOCYTES % (AUTO) 26.9 % (20.5-51.5); MEAN CORPUSCULAR HEMOGLOBIN 29 pg (27-31); MEAN CORPUSCULAR HGB CONC 33 % (32-36); MEAN CORPUSCULAR VOLUME 89 fL (79.0-98.0); MONOCYTES # (AUTO) 0.6 K/uL (0.0-1.0); MONOCYTES % (AUTO) 6.6 % (1.7-9.3); NEUTROPHILS # (AUTO) 6.2 K/uL (1.8-7.7); NEUTROPHILS % (AUTO) 66.1 % (40.0-70.0); PLATELET COUNT (AUTO) 145 K/uL (130-430); RED BLOOD CELL COUNT(AUTO) 4.62 MIL/uL (4.2-6.2); RED CELL DISTRIBUTION WIDTH 14.9 % (9.0-15.0); WHITE BLOOD COUNT (AUTO) 9.4 K/uL (4.8-10.8)
[2019-06-15 07:25] LABS: CALCIUM 8.5 mg/dL (8.4-11.0); CREATININE 0.7 mg/dL (0.55-1.30); POTASSIUM 3.7 mmol/L (3.5-5.1)
[2019-06-15 07:45] VITALS: BP_SYST 151
[2019-06-15] MEDS ORDERED: PREDNISONE 20 MG TABLET PO SCH (09:00)
[2019-06-15] MEDS: FLUTICASONE PROPIONATE 50 mCg/SPRAY 16 GM NS SCH (09:44)
[2019-06-15] MEDS: PEG 400/HYPROMELLOSE/GLYCERIN 15 ML DROPS OP SCH ×3 (09:44→17:03)
[2019-06-15] MEDS: LOSARTAN POTASSIUM 50 MG TABLET (COZAAR) PO SCH (09:45)
[2019-06-15] MEDS: guaiFENesin ER 600 MG TAB PO SCH (09:45)
[2019-06-15] MEDS: ATENOLOL 25 MG TABLET(TENORMIN) PO SCH (09:46)
[2019-06-15] MEDS: HYDROCHLOROTHIAZIDE 25 MG TABLET (HCTZ) PO SCH (09:46)
[2019-06-15] MEDS: KCL 20 mEq in D5/0.45NS 1000mL 1,000 ML IV SCH (11:27)
[2019-06-15] MEDS: IBUPROFEN 800 MG TABLET PO PRN (11:34)
[2019-06-15 12:00] VITALS: BP_SYST 150
[2019-06-15 16:00] VITALS: BP_SYST 144
[2019-06-15] MEDS: cefTRIAXone 1 GM in D5W 50 ML IV SCH (16:13)
[2019-06-15] MEDS: AZITHROMYCIN 500 MG in NS 250 ML IV SCH (17:03)
[2019-06-15 18:17] VITALS: BP_SYST 134
[2019-06-15] MEDS ORDERED: Z-PACK (18:25)
[2019-06-15] MEDS ORDERED: SENN-22 PO (18:27)
[2019-06-15] MEDS ORDERED: MED4 PO (18:29)
== END 2019-06-15 19:55 | disposition home or self-care (01) | DRG 139 ==
LOC: SED 20:55 → SMU 06-13 04:12
PROVIDERS: ADMIT Family Medicine; ATTEND Family Medicine
DX: J18.9 Pneumonia, unspecified organism (principal); J45.902 Unspecified asthma with status asthmaticus; J44.1 Chronic obstructive pulmonary disease with (acute) exacerbation; E66.01 Morbid (severe) obesity due to excess calories; J44.0 Chronic obstructive pulmonary disease with (acute) lower respiratory infection; M62.82 Rhabdomyolysis; J20.9 Acute bronchitis, unspecified; Z68.45 Body mass index [BMI] 70 or greater, adult; I10 Essential (primary) hypertension; M19.90 Unspecified osteoarthritis, unspecified site; Z79.899 Other long term (current) drug therapy
CPT/HCPCS: 36415; 71045; 80048; 80053; 82550-TC; 82553-TC; 83735-TC; 83880; 84484; 85025; 85379; 85610-TC; 93005; 94640; 94760; 96374; 99285; J0456; J0696; J1030; J1650; J2930; J7050; J7060; J7512; J7612; J7626